=== PATIENT | male | born 1980 | race Two or more races ===

== ENCOUNTER → 2016-12-08 | Outpatient (CLI) | payer BC ==
--- NOTE | 2016-12-08 10:39 | Diagnostic Imaging Report ---
Indication: COUGH Technique: 2 views of the chest Comparison: none. Findings: Lungs and pleural spaces are clear. Heart size is normal. Bones are unremarkable.. Impression: No acute process
== END | disposition home or self-care (01) ==
LOC: RAD 08:56
DX: R05 Cough (principal); R06.02 Shortness of breath
CPT/HCPCS: 71020

== ENCOUNTER → 2016-12-14 | Outpatient (CLI) | payer BC ==
--- NOTE | 2016-12-14 16:36 | Diagnostic Imaging Report ---
Indications: PAIN, sinus disease Technique: Spiral images obtained through the maxillofacial sinuses. No IV contrast utilized. Multiplanar reconstructions were generated.Total dose length product 626 mGycm. CTDIvol(s) 28mGy. Dose reduction achieved using automated exposure control Comparison: None Findings: Is evidence of prior bilateral sinus surgery, with resection of the medial maxillary gordon and middle turbinates bilaterally. There is also evidence of bilateral ethmoid floor resection. There is mucosal thickening circumferentially within the maxillary sinuses despite this. There are also air-fluid levels within the bilateral maxillary sinuses There is extensive confluent polyposis involving the ethmoid sinuses bilaterally. This also extends into the right frontal sinus and bilateral sphenoid sinuses. The nasal septum is intact, midline. The included intracranial structures are unremarkable. The orbits are unremarkable. The facial and extra facial soft tissues are unremarkable. There may be caries of the left second and third maxillary molars. The dentition is otherwise intact. No evidence of acute bony trauma. Impression: Extensive pansinus disease, as described. Air-fluid levels within the bilateral maxillary sinuses may indicate a component of acute sinusitis Evidence of prior sinus surgery, with resections of the medial maxillary gordon and bilateral ethmoid floors Possible dental disease, as described The CT scanner at [facility] is accredited by the [employer] and the scans are performed using protocols designed to limit radiation exposure to as low as reasonably achievable to attain images of sufficient resolution adequate for diagnostic evaluation.
== END | disposition home or self-care (01) ==
LOC: CAT 15:32
DX: J32.9 Chronic sinusitis, unspecified (principal)
CPT/HCPCS: 70486

== ENCOUNTER 2017-02-02 06:07 | Day surgery (SDC) | payer BC ==
--- NOTE | 2017-02-01 17:43 | Pre-Procedure Note/Attestation ---
Pre-Procedure Note/Attestation Complete Prior to Procedure Planned Procedure: bilateral Procedure Narrative: Bilateral Endoscopic sinus surgery Bilateral nasal polypectomies Indications for Procedure Pre-Operative Diagnosis: Chronic sinusitis and nasal polyps refractory to nasal steroids, multiple antibiotics, antihistamines and on CT shows blocked OMUs. Attestation I attest that I discussed the nature of the procedure; its benefits; risks and complications; and alternatives (and the risks and benefits of such alternatives ), prior to the procedure, with the patient (or the patient's legal teleservices representative). I attest that, if there was a reasonable possibility of needing a blood transfusion, the patient (or the patient's legal teleservices representative) was given the [place] Department [employer] standardized written summary, pursuant to the Ciro Zachary Blood Safety Act ([place] Health and Safety Code # 1645, as amended). I attest that I re-evaluated the patient just prior to the surgery and that there has been no change in the patient's H&P FLORY NJ Feb 01, 2017 17:43
[2017-02-02] VITALS (13 sets, daily range): BP systolic 126–154; BP diastolic 71–108
[~2017-02-02] VITALS: Ht 188 cm; Wt 99.8 kg
--- NOTE | 2017-02-02 02:15 | History and Physical Report ---
DATE OF ADMISSION: 02/02/2017 DATE OF SURGERY: 02/02/2017. INDICATION FOR SURGERY: The patient with nasal polyps and chronic sinusitis with bilateral nasal polypectomies, who has failed nasal steroids, antihistamines, and antibiotics. He had a CT scan done at [facility] on 12/14/2016 and he has had previous sinus surgery. No known drug allergies. He is , three children. Denies history of any issues with alcohol or drugs. He works in retail sales. He had sinus surgery many years ago twice, both for nasal polyps. MEDICATIONS: azithromycin and he occasionally takes ibuprofen. FAMILY HISTORY: Prostate cancer. He eats all foods. As a child, normal development history. PHYSICAL EXAMINATION: VITAL SIGNS: The patient is a 74 inch individual, who weighs 220 pounds, BMI 28.25, blood pressure 120/80, temperature 98.6 degrees, pulse 74, and respiratory rate 13. HEENT: Head, normocephalic. Eyes, PERRLA and EOMI. Lips, tongue, pharynx, and neck normal. Nose, bilateral nasal polyposis. Ears, positive light reflex. CHEST: Clear to auscultation and percussion. HEART: Normal S1 and S2. No S3 or S4. No murmur, bruit, gallop, or rub. EXTREMITIES: Grossly normal. GENITOURINARY: was done by his primary care doctor on a regular basis. It is not indicated for this procedure. ASSESSMENT: The patient with known bilateral nasal polyps with recurrence as well as blockage of his sinuses and recurrent sinusitis because of this. PLAN: 1. Bilateral endoscopic sinus surgery. 2. Bilateral nasal polypectomies. Please note, consent has been signed in my office. The patient has printed pre and postop instructions as well as medications for after surgery including Julian and azithromycin. Fred Shine M.D. DR: YELENA JOB#: [id number] CC: SEAMUS
[~2017-02-02 06:07] MED LIST: Dexamethasone 4mg/ml vial IVP ONE; NKM; ceFAZolin sod 1 GM in D5W 55 ML IV ONE
[2017-02-02] MEDS ORDERED: Cocaine 4% Vial TOPIC ONE (07:02)
[2017-02-02] MEDS ORDERED: Lidocaine 1% 10mg/ml/Epi 0.005mg/ml 30ml vial INJ ONE (07:02)
[2017-02-02] MEDS ORDERED: Bupivacaine w/Epi 0.5% 30ml Vial INJ ONE (07:02)
[2017-02-02] MEDS ORDERED: Sterile Water Irrig 1000ml IRRIG ONE (07:30)
[2017-02-02] MEDS ORDERED: fentaNYL 100 mcg/2 mL IV ONE (07:30)
[2017-02-02] MEDS ORDERED: Midazolam 2mg/2ml Inj ONE (07:30)
[2017-02-02] MEDS ORDERED: Propofol 10mg/ml 20ml IV ONE (07:30)
[2017-02-02] MEDS ORDERED: LR 1000ml ONE (07:30)
[2017-02-02] MEDS ORDERED: NS Irrig 1000ml IRRIG ONE (07:40)
[2017-02-02] MEDS ORDERED: LR 1000ml 1,000 ML IVLG SCH (08:08)
--- NOTE | 2017-02-02 08:12 | Immediate Post-Op Evaluation ---
Immediate Post-Op Evalulation Immediate Post-Op Evalulation Procedure: Sinus polypectomy Date of Evaluation: Feb 02, 2017 Time of Evaluation: 08:50 IV Fluids: 550 Estimated Blood Loss: 350 Blood Pressure Systolic: 142 Blood Pressure Diastolic: 106 Pulse Rate: 95 Respiratory Rate: 20 O2 Sat by Pulse Oximetry: 99 Pain Score (1-10): 0 Nausea: No Vomiting: No Complications No complication Patient Status: awake, patent, none Hydration Status: adequate Drug: Ancef Given Within 1 Hr of Incision: Yes Time Given: 07:40 JOVON TRIVEDI M.D. Feb 02, 2017 08:12
--- NOTE | 2017-02-02 08:12 | Anethesia Preoperative Eval ---
Anesthesia Pre-op PMH/ROS General Date of Evaluation: Feb 02, 2017 Time of Evaluation: 07:30 Anesthesiologist: August ASA Score: ASA 1 Mallampati Score Class I : Soft palate, uvula, fauces, pillars visible Class II: Soft palate, uvula, fauces visible Class III: Soft palate, base of uvula visible Class IV: Only hard plate visible Mallampati Classification: Class II Surgeon: Rl Diagnosis: Nasal polyps Surgical Procedure: Sinus surgery, polypectomy Allergies: Coded Allergies: No Known Allergies (Unverified , 02/01/17) NKDA per DR. Shine records Medications: see eMAR Past Medical History Cardiovascular: Denies: CAD, HTN, ID, arrhythmia, other, valve dz Pulmonary: Denies: COPD, YAIR, asthma, other Gastrointestinal/Genitourinary: Denies: CRI, ESRD, GERD, other Neurologic/Psychiatric: Denies: CVA, TIA, dementia, depression/anxiety, other Endocrine: Denies: DM, hypothyroidism, other, steroids HEENT: Denies: MARSHALL (L), MARSHALL (R), cataract (L), cataract (R), glaucoma, other Hematology/Immune: Denies: DVT, anemia, bleeding disorder, other Musculoskeletal/Integumentary: Denies: DDD, DJD, OA, RA, edema, other PMH Narrative: Denies significant PMH PSxH Narrative: Sinus surgery X2 Anesthesia Pre-op Phys. Exam Physician Exam Last Vital Signs Date Time Temp Pulse Resp B/P Pulse Ox O2 Delivery O2 Flow Rate FiO2 02/02/17 06:42 97.2 68 18 133/71 95 Room Air Constitutional: NAD Neurologic: CN 2-12 intact Cardiovascular: RRR, no M/R/G Respiratory: CTA Gastrointestinal: S/NT/ND Airway Exam Mallampati Score: Class II MO: full ROM: full Teeth: intact Anesthesia Pre-op A/P Risk Assessment & Plan Assessment: Healthy male for polypectomy Plan: GA, LMA Status Change Before Surgery: No Pre-Antibiotics Drug: Ancef Given Within 1 Hr of Incision: Yes Time Given: 07:40 JOVON TRIVEDI M.D. Feb 02, 2017 08:11
[2017-02-02] MEDS ORDERED: LR 1000ml 1,000 ML IV SCH (08:15)
--- NOTE | 2017-02-02 08:36 | Brief Operative Note ---
Immediate Post Operative Note Operative Note Chief Complaint: Chronic sinusitis and nasal airway obstruction Pre-op Diagnosis: Chronic sinusitis and nasal polyps refractory to nasal steroids, multiple antibiotics, antihistamines and on CT shows blocked OMUs. Procedure: 1. Bilateral endoscopic sinus surgery 2. Bilateral nasal polypectomies Post-op Diagnosis: same as pre-op Surgeon: Hesham Nj Solderer Barrel Ribs: none Additional Surgeons: none Anesthesiologist: August Anesthesia: general Specimen: yes - Nasal polyps, C/S-aerobic, anerobic and fungal Complications: none Condition: stable Estimated Blood Loss: volume - 300cc Drains: none Packing: Stamberger nasal gel Implant(s) used?: No FLORY NJ Feb 02, 2017 08:36
[2017-02-02] MEDS ORDERED: HYDROmorphone 1mg/ml Carpuject SUBQ PRN (08:45)
[2017-02-02] MEDS ORDERED: Metoclopramide 10mg/2ml Inj IVP PRN (08:45)
[2017-02-02] MEDS ORDERED: Norco 5mg/325mg tab ORAL PRN (08:45)
--- NOTE | 2017-02-02 08:46 | Discharge Instructions ---
Discharge Instructions Discharge Instructions Follow up with: next week Diet: regular Resume Normal Activity?: No Activity: light activity Pneumonia Vaccine: pt refused vaccine Influenza Vaccine (May to Oct): pt refused vaccine Follow Up Orders pt has printed instructions given to him in office last week during his pre op visit-reviewed with me at the time. Return to Work/School on: Feb 16, 2017 Special Instructions ice over nose x 48 hours. For Surgical Patients Dressing Care: may change May shower: No Contact your physician for: bleeding, pain, tenderness, redness, swelling, yellowish discharge in the op. site For Congestive Heart Failure Reminder Report to your physician any weight gain of 5 pounds or more in one week. FLORY NJ Feb 02, 2017 08:46
--- NOTE | 2017-02-02 08:48 | 48 Hour Post Anesthesia Eval ---
Post Anesthesia Evaluation Procedure: Sinus polypectomy Date of Evaluation: Feb 02, 2017 Time of Evaluation: 08:30 Blood Pressure Systolic: 138 0: 92 Pulse Rate: 78 Respiratory Rate: 18 O2 Sat by Pulse Oximetry: 99 Airway: patent Nausea: No Vomiting: No Pain Intensity: 2 Hydration Status: adequate Cardiopulmonary Status: Stable Mental Status/LOC: patient returned to baseline Follow-up Care/Observations: As per surgery Post-Anesthesia Complications: No anesthetic complication Follow-up care needed: N/A JOVON TRIVEDI M.D. Feb 02, 2017 08:48
[2017-02-02] MEDS: Hydromorphone 0.5mg/0.5ml inj IVP PRN ×3 (08:51→11:13)
--- NOTE | 2017-02-02 16:15 | Operative Note - Dictated ---
DATE OF OPERATION: 02/02/2017 SURGEON: Fred Shine M.D. [employer] ATTENDANT: None. ANESTHESIOLOGIST: Kolby. Anesthesia: LMA general anesthesia as well as 10 mL 1% lidocaine with 1:100,000 epinephrine and Marcaine 0.5% with 1:200,000 epinephrine into the nasal mucosa bilaterally. INDICATION FOR SURGERY: The patient has recurrent nasal polyposis. He has had two previous surgeries. PREOPERATIVE DIAGNOSIS: The patient has recurrent nasal polyposis. He has had two previous surgeries. POSTOPERATIVE DIAGNOSIS: The patient has recurrent nasal polyposis. He has had two previous surgeries. FINDINGS: Extensive nasal polyposis as evident on the CT scan with blocked ostiomeatal units, worse on his right side than his left. PROCEDURE: 1. Bilateral endoscopic sinus surgery. 2. Bilateral nasal polypectomies. TECHNIQUE: The patient prepped and draped in usual manner. A time-out was performed and all concurred to equipment of the procedure to be done. Utilizing 0 and 30 degree scope, I was able to remove polyps both in the nose and opened up the ostiomeatal units bilaterally. There were blocked with polyps. I then made a nasal antral window on either side with a small Lynsey was curved and cleaned out the maxillary sinuses under direct endoscopic vision. Please note that most holes were already made from previous surgeries, so I was basically removing soft tissue bilaterally both under the middle turbinate and nasal antral window, which was widened a bit and through the ostiomeatal units, both under direct endoscopic vision once again with the 0 and 30 degree scope. Scopes were then removed. Area suctioned and dry. One syringe of Stammberger nasal gel in either nares. It was placed on both sides of the middle and inferior turbinates. Mustache dressing was placed. COUNTS: Sponge and needle count was correct. ESTIMATED BLOOD LOSS: 300 mL. DRAINS: None. The patient was extubated and transferred to the recovery room in stable condition. Fred Shine M.D. DR: GARY JOB#: [id number] CC:
== END 2017-02-02 13:45 | disposition home or self-care (01) ==
LOC: SUR 06:07
DX: J33.9 Nasal polyp, unspecified (principal); J32.9 Chronic sinusitis, unspecified
CPT/HCPCS: 31267; 87070; 87075; 87205; J0690; J1170; J2250; J2405; J2704; J2765; J3010; J7120; 94003; 94150